=== PATIENT | female | born 2000 | race Hispanic/Latino ===

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

== ENCOUNTER 2022-02-14 18:32 | Emergency (ER) | payer OTHER ==
[~2022-02-14] VITALS: Ht 160 cm; Wt 117.9 kg
[2022-02-14] MEDS ORDERED: METRONIDAZOLE500 MG PO (22:25)
[2022-02-14] MEDS ORDERED: AMOXICILLIN875 MG PO (22:26)
[2022-02-14] MEDS ORDERED: CLEOCIN HCL300 MG PO ×2 (22:29→22:31)
== END 2022-02-14 22:45 | disposition home or self-care (01) ==
LOC: FSED 19:23
DX: T19.2XXA Foreign body in vulva and vagina, initial encounter (principal)
CPT/HCPCS: 99283